=== PATIENT | male | born 1975 | race Caucasian/White ===

== ENCOUNTER 2025-01-13 09:28 | Emergency (ER) | payer BC, SELFPAY ==
[2025-01-13 09:31] VITALS: BP 199/100
[2025-01-13 09:45] VITALS: BMI 34.3
--- NOTE | 2025-01-13 10:59 | ED.GENMED ---
History of Present Illness
General
Chief Complaint: DVT/Possible Blood Clot
Time Seen by Provider: 01/13/25 09:53
History of Present Illness
History of Present Illness:
49-year-old male with history of diabetes presenting to the emergency department for right lower extremity pain and cramping. Noted symptoms started 3 days ago. Denies inciting injury or trauma. However does note last month he had a diabetic foot
wound which has since cleared up. At that time however, patient was on light duty. 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 Otherwise denies any recent travel or surgeries. Denies chest pain or difficulty breathing. Denies any prior history of
blood clot. Denies numbness or tingling or additional acute medical complaints
Past History
Past History
ED Past Medical History: NIDDM
Social History
Drug: None
Phy Exam
Physical Exam
Physical Exam:
General: Well-appearing, no clinical signs of dehydration, nontoxic and in no acute distress
HEENT: protecting airway
Neck: appears supple
CV: Normal heart rate, regular rhythm
Resp: No accessory muscle use, no increased work of breathing, lungs clear to auscultation bilaterally
Abd: No distention
Extremities: No deformity to the right lower extremity. Minimal swelling. Generalized tenderness to the right calf. No erythema or warmth. Distal sensation and pulses intact. Range of motion intact. Healed plantar
Neuro: alert, no focal neurologic deficit
: deferred
Rectal: deferred
Psych: Normal affect
Skin: Intact
Course
Orders/Labs/Results
Orders:
Orders
01/13/25 09:32
US Periph Venous LOWER Ext RT Urgent
Comment:
Reason For Exam: pain, swelling
01/13/25 10:59
Apixaban [Eliquis] 10 mg PO ONCE ONE
Vital Signs
Initial and Last Documented VS:
Initial Vital Signs
Temp Pulse Resp BP Pulse Ox
97.6 F 90 18 199/100 98
01/13/25 09:31 01/13/25 09:31 01/13/25 09:31 01/13/25 09:31 01/13/25 09:31
Last Documented Vital Signs
Temp Pulse Resp BP Pulse Ox
97.6 F 90 18 199/100 98
01/13/25 09:31 01/13/25 09:31 01/13/25 09:31 01/13/25 09:31 01/13/25 09:31
MDM/Problems Addressed
MDM/Problems Addressed:
49-year-old male with history of diabetes presenting for right leg pain and cramping. Vital signs on arrival are significant for high blood pressure.
On exam patient is resting comfortably, no acute distress or discomfort. Overall benign exam of the right lower extremity with minimal swelling. No present neurovascular compromise. No infectious findings. No report of trauma, no deformity.
Without concern for fracture or malalignment. Suspect muscle cramping. DVT is a consideration given recent increased immobility. Plan for ultrasound imaging.
11:00- Ultrasound is positive for acute DVT. Will start patient on Eliquis. Suspect that it was provoked from recent infection. Advise close follow-up with primary care doctor as well as follow-up with hematology. Eliquis teaching given. Noted
to be hypertensive here. No chest pain or difficulty breathing. No focal neurologic deficits. Without any present concern for hypertensive urgency or emergency
*Pulse Oximetry
SaO2: 98
Oxygen Mode of Delivery: Room air
Patient hypoxic: no
*Critical Care Note
Total Time (30-74mins, 75-104mins- exclusive of procedures): Not Applicable
ED Attending Note
-
Portions of this chart may have been created with voice recognition software.� Occasional wrong word or��sound alike� substitutions may have occurred due to the inherent limitations of voice recognition software.
Discharge Plan
Departure
Referrals:
Girish Butts PA-C [Family Provider, General]
Interventions
Interventions:
*Risk Screen - Suicide Last Done: 01/13/25 09:31
*General Assessment Last Done: 01/13/25 09:31
*Neglect/Abuse Screening Last Done: 01/13/25 09:31
*ED- Fall Risk Assessment Last Done: 01/13/25 09:46
*ED COVID-19 Vaccine History Last Done: 01/13/25 09:31
*ED Influenza Vaccine History Last Done: 01/13/25 09:31
ED- Cardiac Assessment Last Done: 01/13/25 09:49
ED- Pulmonary Assessment Last Done: 01/13/25 09:49
ED-Peripheral Vascular Assessment Last Done: 01/13/25 09:49
ED-Skin Assessment Last Done: 01/13/25 09:49
Discharge Date and Time
Print Language: [id number]
[2025-01-13 11:06] VITALS: BP 170/97
[2025-01-13] MEDS: ELIQUIS 10 MG PO (11:07)
== END 2025-01-13 11:46 | disposition home or self-care (01) ==
LOC: EMR 09:28
PROVIDERS: EMERGENCY PHYSICIAN Student in an Organized Health Care Education/Training Program; FAMILY PHYSICIAN Physician Assistant
DX: I82.401 Acute embolism and thrombosis of unspecified deep veins of right lower extremity (principal); E11.9 Type 2 diabetes mellitus without complications
CPT/HCPCS: 99284; 93971